=== PATIENT | male | born 1960 | race Caucasian/White ===

== ENCOUNTER 2016-08-30 14:00 | Day surgery (SDC) | payer SELFPAY ==
[~2016-08-30 14:00] MED LIST: CITRATE OF MAG300 ML PO; NO MEDICATIONS
[2016-08-30 15:31] LABS: BASO % 0.1 % (0-2); EOS % 1.4 % (0-7); EOSINOPHIL ABSOLUTE COUNT 0.1 tho/cmm (0.0-0.7); HCT-HEMATOCRIT 37.6 % (36.0-53.5); HGB-HEMOGLOBIN 12.9 gm/dl (13.5-17.0); IMMATURE GRANULOCYTES ABSOLUTE 0.01 tho/cmm (0-0.03); IMMATURE GRANULOCYTES PERCENT 0.1 % (0-0.3); LYMPH % 16.7 % (20-45); LYMPH ABSOLUTE COUNT 1.4 tho/cmm (0.8-4.5); MCHC MEAN CORPUSCULAR HGB CONC 34.3 % (32.0-36.0); MCV (MEAN CELL VOLUME) 87.4 fl (82.0-96.0); MEAN PLATELET VOLUME 9.6 cmc (9.4-12.4); MONO % 10.3 % (0-12); MONOCYTE ABSOLUTE COUNT 0.9 tho/cmm (0.0-1.2); NEUTROPHILS % 71.4 % (40-80); PLATELET COUNT 216 tho/cmm (150-450); RED CELL DISTRIBUTION WIDTH 13.8 % (12.4-16.4); WHITE BLOOD COUNT 8.4 tho/cmm (4.0-10.0)
[2016-08-30 15:53] LABS: ANION GAP 11 mmol/L (0-20); BLOOD UREA NITROGEN 27 mg/dl (6-24); CALCIUM 8.5 mg/dl (8.5-10.5); CARBON DIOXIDE-VENOUS 26 mmol/L (22-32); CHLORIDE 108 mmol/l (96-110); CREATININE 0.96 mg/dl (0.60-1.30); GLUCOSE 87 mg/dL (70-110); SODIUM 140 mmol/L (135-145); eGFR VALUE FOR BLACK >90 mL/Min
[2016-08-30 15:56] LABS: POTASSIUM 4.6 mmol/L (3.7-5.1)
[2016-08-30 17:04] LABS: PROTHROMBIN TIME 11.7 SECONDS (9.0-13.6)
[2016-08-30 18:05] LABS: URINE BILIRUBIN NEGATIVE (NEG); URINE BLOOD NEGATIVE (NEG); URINE GLUCOSE (UA) NEGATIVE (NEG); URINE KETONE MODERATE (NEG); URINE LEUKOCYTE ESTERASE NEGATIVE (NEG); URINE NITRITE NEGATIVE (NEG); URINE PROTEIN SMALL (NEG)
[2016-08-30 18:07] LABS: URINE APPEARANCE CLEAR; URINE COLOR YELLOW
[2016-08-30 18:14] LABS: URINE EPITHELIAL CELLS 0-1 /[HPF] (0-10); URINE RBC 0 /[HPF] (0-5); URINE WBC 0 /[HPF] (0-5)
[2016-08-30] MEDS ORDERED: VRAYLAR1.5 MG PO (22:11)
[2016-08-30] MEDS ORDERED: ANXIETY MED PO (22:12)
[2016-08-31 05:25] LABS: HCT-HEMATOCRIT 37.7 % (36.0-53.5); HGB-HEMOGLOBIN 12.8 gm/dl (13.5-17.0); IMMATURE GRANULOCYTES ABSOLUTE 0.01 tho/cmm (0-0.03); IMMATURE GRANULOCYTES PERCENT 0.1 % (0-0.3); LYMPH % 7.3 % (20-45); LYMPH ABSOLUTE COUNT 0.5 tho/cmm (0.8-4.5); MCH (MEAN CORPUSCULAR HGB) 29.6 pg (28.0-32.0); MCV (MEAN CELL VOLUME) 87.1 fl (82.0-96.0); MEAN PLATELET VOLUME 9.8 cmc (9.4-12.4); MONO % 8.5 % (0-12); MONOCYTE ABSOLUTE COUNT 0.6 tho/cmm (0.0-1.2); NEUTROPHILS % 84.1 % (40-80); PLATELET COUNT 225 tho/cmm (150-450); RED BLOOD COUNT 4.33 mil/cmm (4.40-5.70); RED CELL DISTRIBUTION WIDTH 13.7 % (12.4-16.4); WHITE BLOOD COUNT 7.1 tho/cmm (4.0-10.0)
[2016-08-31 05:46] LABS: ANION GAP 10 mmol/L (0-20); BLOOD UREA NITROGEN 19 mg/dl (6-24); CALCIUM 8.4 mg/dl (8.5-10.5); CARBON DIOXIDE-VENOUS 26 mmol/L (22-32); CHLORIDE 106 mmol/l (96-110); CREATININE 0.92 mg/dl (0.60-1.30); POTASSIUM 4.3 mmol/L (3.7-5.1); SODIUM 138 mmol/L (135-145); eGFR VALUE FOR BLACK >90 mL/Min
[2016-08-31 05:57] LABS: GLUCOSE 155 mg/dL (70-110)
[2016-08-31] MEDS ORDERED: NORCO 5-325 TA1 EACH PO (13:25)
[2017-03-06] MEDS ORDERED: COUGH DM E30 MG/5 ML PO (03:34)
[2017-03-06] MEDS ORDERED: VIBRAMYCIN100 M1 PO (04:11)
== END 2016-08-31 17:50 ==
LOC: EDMED 14:00 → EMR2 16:10 → CAR1 20:35
PROVIDERS: Emergency Medicine; Family Medicine; Nurse Practitioner
PROC: 0PST04Z Reposition Right Finger Phalanx with Internal Fixation Device, Open Approach (ICD-10-PCS; principal; 2016-08-30)
PROC: 0PST34Z Reposition Right Finger Phalanx with Internal Fixation Device, Percutaneous Approach (ICD-10-PCS; 2016-08-30)
DX: S62.616B Displaced fracture of proximal phalanx of right little finger, initial encounter for open fracture (principal); S62.614A Displaced fracture of proximal phalanx of right ring finger, initial encounter for closed fracture; F31.9 Bipolar disorder, unspecified; F41.9 Anxiety disorder, unspecified; Z98.890 Other specified postprocedural states; W19.XXXA Unspecified fall, initial encounter; Y93.9 Activity, unspecified; Y92.512 Supermarket, store or market as the place of occurrence of the external cause; Y99.8 Other external cause status
CPT/HCPCS: G0480; J0690; J1170; J2250; J2405; J7030